=== PATIENT | male | born 1965 | race Caucasian/White ===

== ENCOUNTER 2023-03-16 21:24 | Inpatient (IN) | payer OTHER ==
[~2023-03-16] VITALS: Ht 180.3 cm; Wt 85.0 kg
[2023-03-16] MEDS ORDERED: VANCOMYCIN 1GM/250ML 250 ML IV ONE (23:00)
[2023-03-16] MEDS ORDERED: LACTATED RINGER'S 2,550 ML IV ONE (23:00)
[2023-03-16] MEDS ORDERED: cefTRIAXone SOD 1,000 MG VL IM ONE (23:00)
[2023-03-16] MEDS ORDERED: PIPERACILLIN-TAZOB 3.375GM 100 ML IV ONE (23:15)
[2023-03-16 23:36] LABS: Basophils # (auto) 0 10 ^3/uL (0-0.2); Basophils % (auto) 0.3 % (0.0-2.0); Eosinophils # (auto) 0 10 ^3/uL (0-0.8); Eosinophils % (auto) 0.1 % (0.0-7.0); Hematocrit 35.8 % (41.0-53.0); Hemoglobin 12.4 g/dL (13.5-17.5); Lymphocytes # (auto) 0.8 10 ^3/uL (0.4-5.4); Lymphocytes % (auto) 5.5 % (10.0-50.0); Mean Corpuscular Hemoglobin 32.4 pg (28.0-32.0); Mean Corpuscular Hgb Conc. 34.7 g/dL (32.0-36.0); Mean Corpuscular Volume 93.2 fL (80.0-100.0); Monocytes # (auto) 0.8 10 ^3/uL (0-1.3); Monocytes % (auto) 5.3 % (0.0-12.0); Neutrophils # (auto) 13.4 10 ^3/uL (1.6-8.6); Neutrophils % (auto) 88.8 % (37.0-80.0); Red Blood Cells 3.84 10^6/uL (4.5-5.90)
[2023-03-16 23:53] LABS: Albumin 3.1 g/dL (3.4-5.0); BUN/Creatinine Ratio 17.9 (10.0-20.0); Calcium 8.4 mg/dL (8.5-10.1); INR 1.25 (0.9-1.15); Partial Thromboplastin Time 28.5 sec (24.6-33.4)
[2023-03-16 23:56] LABS: Bilirubin, Total 0.5 mg/dL (0.2-1.0)
[2023-03-17] MEDS ORDERED: ONDANSETRON HCL 4 MG/2 ML VIAL IV ONE (00:30)
[2023-03-17] MEDS ORDERED: diphenhdrAMINE HCL 50 MG/1 ML VL IV ONE (00:30)
[2023-03-17] MEDS ORDERED: DexAMETHasone SOD PHOS 10MG/1ML VIAL INJ IV ONE (00:30)
[2023-03-17] MEDS ORDERED: HYDROmorphone HCL 2 MG/ML VL/or syr IV ONE ×2 (00:30→06:00)
[2023-03-17] MEDS ORDERED: OMEPRAZOLE-SOD BICARB 20 MG POWDER PO ONE (01:50)
[2023-03-17] MEDS ORDERED: PANTOPRAZOLE 40 MG TAB PO ONE (03:00)
[2023-03-17] MEDS: HYDROcodone-ACET 10/325MG TAB PO PRN ×4 (07:04→22:58)
[2023-03-17] MEDS: ENOXAPARIN SOD 40 MG/0.4 ML SYRINGE SC SCH (09:14)
[2023-03-17] MEDS: PANTOPRAZOLE 40 MG TAB PO SCH (09:14)
[2023-03-17 10:23] VITALS: BP 108/58
[2023-03-17 10:30] VITALS: BP 98/58
[2023-03-17] MEDS ORDERED: VANCOMYCIN PER PHARMACY 0 MG IV SCH (13:00)
[2023-03-17 13:41] VITALS: BP 94/54
[2023-03-17] MEDS: VANCOMYCIN 1GM/250ML 250 ML IV SCH (14:06)
[2023-03-17 17:00] VITALS: BP 103/43
[2023-03-17] MEDS: PIPERACILLIN-TAZOB 3.375GM 100 ML IV SCH (18:28)
[2023-03-17 22:00] VITALS: BP 118/52
[2023-03-18] MEDS: VANCOMYCIN 1GM/250ML 250 ML IV SCH ×2 (01:51→15:04)
[2023-03-18 05:00] VITALS: BP 103/68
[2023-03-18 09:00] VITALS: BP 101/47
[2023-03-18] MEDS: PANTOPRAZOLE 40 MG TAB PO SCH (09:19)
[2023-03-18] MEDS: PIPERACILLIN-TAZOB 3.375GM 100 ML IV SCH ×2 (09:19→18:19)
[2023-03-18] MEDS: ENOXAPARIN SOD 40 MG/0.4 ML SYRINGE SC SCH (09:19)
[2023-03-18] MEDS: HYDROcodone-ACET 10/325MG TAB PO PRN ×3 (09:24→23:33)
[2023-03-18 12:48] VITALS: BP 101/50
[2023-03-18] MEDS: DAKINS QUARTER STR 0.125% (NaHypochlorite) 473 ML TOPICAL SOL TOP SCH (15:04)
[2023-03-18 16:47] VITALS: BP 95/50
[2023-03-18 22:00] VITALS: BP 115/62
[2023-03-19] MEDS: VANCOMYCIN 1GM/250ML 250 ML IV SCH ×2 (01:53→14:33)
[2023-03-19] MEDS: PIPERACILLIN-TAZOB 3.375GM 100 ML IV SCH ×3 (03:36→18:00)
[2023-03-19 05:00] VITALS: BP 93/49
[2023-03-19 09:00] VITALS: BP 98/60
[2023-03-19] MEDS: PANTOPRAZOLE 40 MG TAB PO SCH (10:00)
[2023-03-19] MEDS: ENOXAPARIN SOD 40 MG/0.4 ML SYRINGE SC SCH (10:00)
[2023-03-19] MEDS: HYDROcodone-ACET 10/325MG TAB PO PRN ×2 (10:06→14:42)
[2023-03-19 12:56] VITALS: BP 98/49
[2023-03-19] MEDS: DAKINS QUARTER STR 0.125% (NaHypochlorite) 473 ML TOPICAL SOL TOP SCH (14:42)
[2023-03-19] MEDS ORDERED: LEVO500T91 PO (15:39)
[2023-03-19 16:28] VITALS: BP 103/70
[2023-03-19 16:56] VITALS: BP 103/70
== END 2023-03-19 18:25 | DRG 602 ==
LOC: EDBD 21:24 → ER 21:24 → EEVIPCON 21:24 → OVERFLOW 03-17 06:38 → CENTRAL 03-17 10:05
PROVIDERS: ADMIT Internal Medicine; ATTEND Internal Medicine
DX: L03.116 Cellulitis of left lower limb (principal); J18.9 Pneumonia, unspecified organism; L03.115 Cellulitis of right lower limb; I73.9 Peripheral vascular disease, unspecified; I10 Essential (primary) hypertension; I48.91 Unspecified atrial fibrillation; Z88.2 Allergy status to sulfonamides; Z90.49 Acquired absence of other specified parts of digestive tract; I87.2 Venous insufficiency (chronic) (peripheral)
CPT/HCPCS: 36415; 71045; 73718; 80053; 80202; 82565; 83605; 83690; 85025; 85610; 85730; 87040; 87077; 87186; 87205; 93970; 96365; 96366; 96368; 96375; G0378; J1100; J2405; J2543

== ENCOUNTER 2023-08-10 10:51 | Inpatient (IN) | payer OTHER ==
[~2023-08-10] VITALS: Ht 185.4 cm; Wt 89.0 kg
[~2023-08-10 10:51] MED LIST: LEVO500T91 PO
[2023-08-10] MEDS ORDERED: KETOROLAC TROMETH 30 MG/ML 1ML VIAL IV ONE (11:00)
[2023-08-10 11:21] LABS: Basophils # (auto) 0 10 ^3/uL (0-0.2); Basophils % (auto) 0.5 % (0.0-2.0); Eosinophils # (auto) 0.8 10 ^3/uL (0-0.8); Eosinophils % (auto) 9.6 % (0.0-7.0); Hematocrit 41.9 % (41.0-53.0); Hemoglobin 14.2 g/dL (13.5-17.5); Lymphocytes # (auto) 1.7 10 ^3/uL (0.4-5.4); Lymphocytes % (auto) 19.5 % (10.0-50.0); Mean Corpuscular Hemoglobin 31.4 pg (28.0-32.0); Mean Corpuscular Hgb Conc. 33.8 g/dL (32.0-36.0); Mean Corpuscular Volume 93.1 fL (80.0-100.0); Monocytes # (auto) 0.7 10 ^3/uL (0-1.3); Monocytes % (auto) 8.5 % (0.0-12.0); Neutrophils # (auto) 5.4 10 ^3/uL (1.6-8.6); Neutrophils % (auto) 61.9 % (37.0-80.0); Nucleated Red Blood Cells % 0.2 %; Red Cell Distribution Width 14.9 % (11.8-14.3); White Blood Cell 8.7 10^3/uL (4.4-10.8)
[2023-08-10 11:51] LABS: Alanine Aminotransferase 39 U/L (7-40); Albumin 4.4 g/dL (3.2-4.8); Alkaline Phosphatase 122 U/L (46-116); Anion Gap 6 (5-15); Aspartate Aminotransferase 37 U/L (13-40); BUN/Creatinine Ratio 17.6 (10.0-20.0); Bilirubin, Total 0.6 mg/dL (0.2-1.0); Blood Urea Nitrogen 22 mg/dL (9-23); Calcium 9.4 mg/dL (8.7-10.4); Carbon Dioxide 26 mmol/L (20-30); Chloride 104 mmol/L (98-107); Glucose 91 mg/dL (74-106); Lactic Acid w/Reflex 2.8 mmol/L (0.4-2.0); Potassium 4.4 mmol/L (3.5-5.1); Sodium 136 mmol/L (136-145); Total Protein 7.9 g/dL (5.7-8.2)
[2023-08-10 12:33] LABS: Erythrocyte Sedimentation Rate 19 mm/hr (0-20)
[2023-08-10] MEDS ORDERED: KETOROLAC TROMETH 60MG/2ML VIAL ONE (13:43)
[2023-08-10] MEDS ORDERED: VANCOMYCIN PER PHARMACY 0 MG IV SCH (15:30)
[2023-08-10] MEDS ORDERED: VANCOMYCIN 1GM/250ML 250 ML IV ONE (16:00)
[2023-08-10 20:20] VITALS: O2SAT 98
[2023-08-10] MEDS ORDERED: methylPREDNISolone SOD SUCC 125 MG/2 ML VL IV ONE (22:30)
[2023-08-10] MEDS ORDERED: PIPERACILLIN-TAZOB 3.375GM 100 ML IV ONE (22:30)
[2023-08-10] MEDS ORDERED: diphenhdrAMINE HCL 50 MG/1 ML VL IV ONE (22:30)
[2023-08-10] MEDS: IBUPROFEN 800 MG TAB PO PRN (22:31)
[2023-08-11 05:00] VITALS: BP 114/58; PULSE 74; RESP 17; TEMP 97.7; O2SAT 94
[2023-08-11 05:30] VITALS: PULSE 74; RESP 17; O2SAT 94
[2023-08-11 09:00] VITALS: BP 109/49; PULSE 62; RESP 14; TEMP 98; O2SAT 100
[2023-08-11] MEDS ORDERED: VANCOMYCIN 1GM/250ML 250 ML IV SCH (09:00)
[2023-08-11] MEDS: DULoxetine HCL 30 MG CAP PO SCH (10:00)
[2023-08-11] MEDS: PANTOPRAZOLE 40 MG TAB PO SCH (10:09)
[2023-08-11] MEDS: IBUPROFEN 800 MG TAB PO PRN (10:10)
[2023-08-11] MEDS: ENOXAPARIN SOD 40 MG/0.4 ML SYRINGE SC SCH (10:11)
[2023-08-11 12:53] VITALS: BP 125/73; PULSE 87; RESP 16; TEMP 98.4; O2SAT 97
[2023-08-11] MEDS: PIPERACILLIN-TAZOB 3.375GM 100 ML IV SCH ×2 (13:39→22:38)
[2023-08-11 17:00] VITALS: BP 110/58; PULSE 83; RESP 16; TEMP 97.8; O2SAT 99
[2023-08-11 22:00] VITALS: BP 125/68; PULSE 85; RESP 14; TEMP 98.4; O2SAT 94
[2023-08-11] MEDS: traMADol HCL 50 MG TAB PO PRN (23:03)
[2023-08-11] MEDS: DAKINS QUARTER STR 0.125% (NaHypochlorite) 473 ML TOPICAL SOL TOP SCH (23:09)
[2023-08-12 05:00] VITALS: BP 119/66; PULSE 75; RESP 16; TEMP 98.2; O2SAT 94
[2023-08-12] MEDS: PIPERACILLIN-TAZOB 3.375GM 100 ML IV SCH ×3 (06:26→21:57)
[2023-08-12] MEDS: traMADol HCL 50 MG TAB PO PRN ×3 (08:32→23:19)
[2023-08-12] MEDS: DULoxetine HCL 30 MG CAP PO SCH (08:32)
[2023-08-12] MEDS: PANTOPRAZOLE 40 MG TAB PO SCH (08:32)
[2023-08-12] MEDS: ENOXAPARIN SOD 40 MG/0.4 ML SYRINGE SC SCH (08:32)
[2023-08-12 08:53] VITALS: BP 122/67; PULSE 62; RESP 12; TEMP 97.9; O2SAT 93
[2023-08-12] MEDS: DAKINS QUARTER STR 0.125% (NaHypochlorite) 473 ML TOPICAL SOL TOP SCH ×2 (10:22→21:57)
[2023-08-12 13:01] VITALS: BP 93/50; PULSE 65; RESP 20; TEMP 98.2; O2SAT 92
[2023-08-12 16:48] VITALS: BP 114/57; PULSE 63; RESP 16; TEMP 97.7; O2SAT 94
[2023-08-12 20:00] VITALS: RESP 16
[2023-08-12 21:52] VITALS: BP 107/65; PULSE 60; RESP 14; TEMP 98.2; O2SAT 95
[2023-08-13 05:00] VITALS: BP 95/58; PULSE 64; RESP 14; TEMP 97.9; O2SAT 91
[2023-08-13] MEDS: PIPERACILLIN-TAZOB 3.375GM 100 ML IV SCH (05:45)
[2023-08-13 08:00] VITALS: BP 132/81; PULSE 51; RESP 18; TEMP 97.7
[2023-08-13] MEDS: DULoxetine HCL 30 MG CAP PO SCH ×2 (08:10→13:33)
[2023-08-13 09:11] VITALS: BP 132/81; PULSE 54; RESP 20; TEMP 97.8; O2SAT 94
[2023-08-13] MEDS: PANTOPRAZOLE 40 MG TAB PO SCH (09:36)
[2023-08-13] MEDS: ENOXAPARIN SOD 40 MG/0.4 ML SYRINGE SC SCH (09:37)
[2023-08-13] MEDS: DAKINS QUARTER STR 0.125% (NaHypochlorite) 473 ML TOPICAL SOL TOP SCH ×2 (10:00→22:30)
[2023-08-13] MEDS: IBUPROFEN 800 MG TAB PO PRN ×2 (11:31→18:37)
[2023-08-13 13:00] VITALS: BP 124/72; PULSE 67; RESP 18; TEMP 98.2; O2SAT 94
[2023-08-13] MEDS: traMADol HCL 50 MG TAB PO PRN ×2 (13:33→22:48)
[2023-08-13 17:00] VITALS: BP 142/83; PULSE 60; RESP 20; TEMP 98.3; O2SAT 95
[2023-08-13 22:00] VITALS: BP 121/79; PULSE 66; RESP 18; TEMP 98; O2SAT 95
[2023-08-13] MEDS: LINEZOLID 600MG/300ML 300 ML IV SCH (22:31)
[2023-08-14] VITALS (8 sets, daily range): BP systolic 96–122; BP diastolic 49–76; PULSE 59–68; RESP 16–19; TEMP 97.8–98.4; O2SAT 93–95
[2023-08-14] MEDS: DULoxetine HCL 30 MG CAP PO SCH (09:20)
[2023-08-14] MEDS: ENOXAPARIN SOD 40 MG/0.4 ML SYRINGE SC SCH (09:20)
[2023-08-14] MEDS: PANTOPRAZOLE 40 MG TAB PO SCH (09:21)
[2023-08-14] MEDS: LINEZOLID 600MG/300ML 300 ML IV SCH ×2 (09:21→22:09)
[2023-08-14] MEDS: DAKINS QUARTER STR 0.125% (NaHypochlorite) 473 ML TOPICAL SOL TOP SCH ×2 (09:22→22:09)
[2023-08-14] MEDS: traMADol HCL 50 MG TAB PO PRN (15:04)
[2023-08-15] VITALS (7 sets, daily range): BP systolic 87–122; BP diastolic 47–74; PULSE 66–83; RESP 17–22; TEMP 98.1–98.6; O2SAT 91–98
[2023-08-15 05:25] LABS: Basophils # (auto) 0.1 10 ^3/uL (0-0.2); Eosinophils % (auto) 14.8 % (0.0-7.0); Hematocrit 40.4 % (41.0-53.0); Hemoglobin 13.7 g/dL (13.5-17.5); Lymphocytes % (auto) 15.6 % (10.0-50.0); Mean Corpuscular Hemoglobin 31.4 pg (28.0-32.0); Mean Corpuscular Volume 92.5 fL (80.0-100.0); Monocytes # (auto) 0.5 10 ^3/uL (0-1.3); Monocytes % (auto) 7.4 % (0.0-12.0); Neutrophils # (auto) 4.1 10 ^3/uL (1.6-8.6); Neutrophils % (auto) 61.2 % (37.0-80.0); Nucleated Red Blood Cells % 0.1 %; Red Blood Cells 4.36 10^6/uL (4.5-5.90); Red Cell Distribution Width 14.8 % (11.8-14.3); White Blood Cell 6.7 10^3/uL (4.4-10.8)
[2023-08-15 05:33] LABS: Chloride 106 mmol/L (98-107); Sodium 138 mmol/L (136-145)
[2023-08-15 05:34] LABS: Anion Gap 6 (5-15); Calcium 8.8 mg/dL (8.7-10.4); Carbon Dioxide 26 mmol/L (20-30)
[2023-08-15 05:39] LABS: BUN/Creatinine Ratio 14.4 (10.0-20.0); Blood Urea Nitrogen 17 mg/dL (9-23); Glucose 95 mg/dL (74-106)
[2023-08-15] MEDS: IBUPROFEN 800 MG TAB PO PRN (06:16)
[2023-08-15] MEDS: LINEZOLID 600MG/300ML 300 ML IV SCH ×2 (09:44→22:44)
[2023-08-15] MEDS: PANTOPRAZOLE 40 MG TAB PO SCH (09:44)
[2023-08-15] MEDS: DULoxetine HCL 30 MG CAP PO SCH (09:44)
[2023-08-15] MEDS: DAKINS QUARTER STR 0.125% (NaHypochlorite) 473 ML TOPICAL SOL TOP SCH ×2 (09:44→22:00)
[2023-08-15] MEDS: ENOXAPARIN SOD 40 MG/0.4 ML SYRINGE SC SCH (09:44)
[2023-08-15] MEDS: traMADol HCL 50 MG TAB PO PRN ×2 (09:58→17:51)
[2023-08-16] VITALS (7 sets, daily range): BP systolic 98–137; BP diastolic 59–73; PULSE 61–92; RESP 17–48; TEMP 97.6–98; O2SAT 92–97
[2023-08-16] MEDS: traMADol HCL 50 MG TAB PO PRN (05:52)
[2023-08-16] MEDS: PANTOPRAZOLE 40 MG TAB PO SCH (10:12)
[2023-08-16] MEDS: ENOXAPARIN SOD 40 MG/0.4 ML SYRINGE SC SCH (10:13)
[2023-08-16] MEDS: DULoxetine HCL 30 MG CAP PO SCH (10:13)
[2023-08-16] MEDS: cefTRIAXone 1GM/50ML D5W 50 ML IV SCH (10:48)
[2023-08-16] MEDS: LINEZOLID 600MG/300ML 300 ML IV SCH ×2 (12:26→22:41)
[2023-08-16] MEDS ORDERED: ACYCLOVIR 400 MG TAB PO SCH (14:00)
[2023-08-16] MEDS: HYDROcodone-ACET 10/325MG TAB PO PRN ×2 (16:56→22:40)
[2023-08-16] MEDS: DAKINS QUARTER STR 0.125% (NaHypochlorite) 473 ML TOPICAL SOL TOP SCH ×2 (16:58→22:00)
[2023-08-16] MEDS: ACYCLOVIR 400 MG TAB PO SCH (22:40)
[2023-08-17] VITALS (7 sets, daily range): BP systolic 102–131; BP diastolic 57–79; PULSE 55–81; RESP 18–20; TEMP 97.4–98.3; O2SAT 94–99
[2023-08-17] MEDS: ACYCLOVIR 400 MG TAB PO SCH ×5 (05:35→21:52)
[2023-08-17] MEDS: cefTRIAXone 1GM/50ML D5W 50 ML IV SCH (08:50)
[2023-08-17] MEDS: PANTOPRAZOLE 40 MG TAB PO SCH (11:30)
[2023-08-17] MEDS: LINEZOLID 600MG/300ML 300 ML IV SCH ×2 (11:30→21:51)
[2023-08-17] MEDS: DULoxetine HCL 30 MG CAP PO SCH (11:30)
[2023-08-17] MEDS: ENOXAPARIN SOD 40 MG/0.4 ML SYRINGE SC SCH (11:30)
[2023-08-17] MEDS: DAKINS QUARTER STR 0.125% (NaHypochlorite) 473 ML TOPICAL SOL TOP SCH ×2 (11:31→21:58)
[2023-08-17] MEDS: HYDROcodone-ACET 10/325MG TAB PO PRN ×2 (17:12→21:52)
[2023-08-18] VITALS (7 sets, daily range): BP systolic 115–139; BP diastolic 40–65; PULSE 65–75; RESP 17–20; TEMP 97.6–98.9; O2SAT 94–97
[2023-08-18] MEDS: ACYCLOVIR 400 MG TAB PO SCH ×5 (05:57→21:26)
[2023-08-18] MEDS: cefTRIAXone 1GM/50ML D5W 50 ML IV SCH (08:57)
[2023-08-18] MEDS: LINEZOLID 600MG/300ML 300 ML IV SCH ×2 (10:38→21:25)
[2023-08-18] MEDS: DULoxetine HCL 30 MG CAP PO SCH (10:39)
[2023-08-18] MEDS: PANTOPRAZOLE 40 MG TAB PO SCH (10:40)
[2023-08-18] MEDS: ENOXAPARIN SOD 40 MG/0.4 ML SYRINGE SC SCH (10:40)
[2023-08-18] MEDS: DAKINS QUARTER STR 0.125% (NaHypochlorite) 473 ML TOPICAL SOL TOP SCH ×2 (10:42→21:25)
[2023-08-18] MEDS: HYDROcodone-ACET 10/325MG TAB PO PRN ×2 (10:43→21:27)
[2023-08-19] VITALS (7 sets, daily range): BP systolic 110–131; BP diastolic 54–77; PULSE 60–74; RESP 17–20; TEMP 97.8–97.9; O2SAT 94–100
[2023-08-19] MEDS: HYDROcodone-ACET 10/325MG TAB PO PRN ×2 (04:34→09:41)
[2023-08-19] MEDS: ACYCLOVIR 400 MG TAB PO SCH ×5 (05:32→21:28)
[2023-08-19] MEDS: cefTRIAXone 1GM/50ML D5W 50 ML IV SCH (08:30)
[2023-08-19] MEDS: LINEZOLID 600MG/300ML 300 ML IV SCH ×2 (09:40→21:27)
[2023-08-19] MEDS: ENOXAPARIN SOD 40 MG/0.4 ML SYRINGE SC SCH (09:41)
[2023-08-19] MEDS: DULoxetine HCL 30 MG CAP PO SCH (09:41)
[2023-08-19] MEDS: PANTOPRAZOLE 40 MG TAB PO SCH (09:42)
[2023-08-19] MEDS: DAKINS QUARTER STR 0.125% (NaHypochlorite) 473 ML TOPICAL SOL TOP SCH ×2 (09:43→21:30)
[2023-08-19] MEDS: OXYCODONE W/ ACETAMINOPHEN 5/325MG TABLET PO PRN ×2 (13:27→21:29)
[2023-08-20] VITALS (7 sets, daily range): BP systolic 103–124; BP diastolic 60–65; PULSE 60–71; RESP 18–20; TEMP 97.5–99; O2SAT 93–95
[2023-08-20] MEDS: ACYCLOVIR 400 MG TAB PO SCH ×5 (06:35→21:19)
[2023-08-20] MEDS: ENOXAPARIN SOD 40 MG/0.4 ML SYRINGE SC SCH (10:37)
[2023-08-20] MEDS: cefTRIAXone 1GM/50ML D5W 50 ML IV SCH (10:37)
[2023-08-20] MEDS: PANTOPRAZOLE 40 MG TAB PO SCH (10:37)
[2023-08-20] MEDS: LINEZOLID 600MG/300ML 300 ML IV SCH ×2 (10:37→21:13)
[2023-08-20] MEDS: DULoxetine HCL 30 MG CAP PO SCH (10:37)
[2023-08-20] MEDS: OXYCODONE W/ ACETAMINOPHEN 5/325MG TABLET PO PRN (15:23)
[2023-08-20] MEDS: DAKINS QUARTER STR 0.125% (NaHypochlorite) 473 ML TOPICAL SOL TOP SCH ×2 (18:54→21:19)
[2023-08-20] MEDS: IBUPROFEN 800 MG TAB PO PRN (21:14)
[2023-08-21] MEDS: OXYCODONE W/ ACETAMINOPHEN 5/325MG TABLET PO PRN ×2 (04:55→23:13)
[2023-08-21] MEDS: ACYCLOVIR 400 MG TAB PO SCH ×5 (04:56→22:05)
[2023-08-21 05:00] VITALS: BP 113/52; PULSE 62; RESP 18; TEMP 97.7; O2SAT 95
[2023-08-21] MEDS: cefTRIAXone 1GM/50ML D5W 50 ML IV SCH (08:29)
[2023-08-21 08:30] VITALS: BP 111/70; PULSE 60; RESP 16; TEMP 97.6; O2SAT 96
[2023-08-21 09:00] VITALS: BP 111/70; PULSE 60; RESP 16; TEMP 97.6; O2SAT 96
[2023-08-21] MEDS: DULoxetine HCL 30 MG CAP PO SCH (10:25)
[2023-08-21] MEDS: ENOXAPARIN SOD 40 MG/0.4 ML SYRINGE SC SCH (10:25)
[2023-08-21] MEDS: PANTOPRAZOLE 40 MG TAB PO SCH (10:25)
[2023-08-21] MEDS: LINEZOLID 600MG/300ML 300 ML IV SCH ×2 (10:25→22:05)
[2023-08-21 13:00] VITALS: BP 115/58; PULSE 69; RESP 18; TEMP 98.1; O2SAT 93
[2023-08-21 16:37] VITALS: BP 105/57; PULSE 69; RESP 20; TEMP 98.4; O2SAT 94
[2023-08-21] MEDS: DAKINS QUARTER STR 0.125% (NaHypochlorite) 473 ML TOPICAL SOL TOP SCH ×2 (17:10→22:23)
[2023-08-21 20:00] VITALS: BP 117/64; PULSE 83; RESP 18; TEMP 98.1; O2SAT 94
[2023-08-22] VITALS (7 sets, daily range): BP systolic 102–136; BP diastolic 58–69; PULSE 55–71; RESP 18–20; TEMP 97.4–98.1; O2SAT 93–99
[2023-08-22] MEDS: OXYCODONE W/ ACETAMINOPHEN 5/325MG TABLET PO PRN ×4 (03:54→23:50)
[2023-08-22] MEDS: ACYCLOVIR 400 MG TAB PO SCH ×5 (05:55→21:58)
[2023-08-22] MEDS: cefTRIAXone 1GM/50ML D5W 50 ML IV SCH (08:16)
[2023-08-22] MEDS: LINEZOLID 600MG/300ML 300 ML IV SCH ×2 (10:28→21:57)
[2023-08-22] MEDS: DULoxetine HCL 30 MG CAP PO SCH (10:29)
[2023-08-22] MEDS: PANTOPRAZOLE 40 MG TAB PO SCH (10:29)
[2023-08-22] MEDS: ENOXAPARIN SOD 40 MG/0.4 ML SYRINGE SC SCH (10:42)
[2023-08-22] MEDS: DAKINS QUARTER STR 0.125% (NaHypochlorite) 473 ML TOPICAL SOL TOP SCH ×2 (18:42→21:58)
[2023-08-23] VITALS (7 sets, daily range): BP systolic 99–131; BP diastolic 46–72; PULSE 58–77; RESP 18–20; TEMP 97.5–98; O2SAT 94–99
[2023-08-23 05:57] LABS: Alanine Aminotransferase 74 U/L (7-40); Albumin 4.3 g/dL (3.2-4.8); Alkaline Phosphatase 102 U/L (46-116); Anion Gap 6 (5-15); Aspartate Aminotransferase 49 U/L (13-40); BUN/Creatinine Ratio 12.8 (10.0-20.0); Blood Urea Nitrogen 15 mg/dL (9-23); Calcium 9.5 mg/dL (8.7-10.4); Carbon Dioxide 27 mmol/L (20-30); Chloride 105 mmol/L (98-107); Glucose 86 mg/dL (74-106); Potassium 4.4 mmol/L (3.5-5.1); Sodium 138 mmol/L (136-145)
[2023-08-23 05:58] LABS: Bilirubin, Total 0.5 mg/dL (0.2-1.0); Total Protein 7.5 g/dL (5.7-8.2)
[2023-08-23] MEDS: ACYCLOVIR 400 MG TAB PO SCH ×5 (06:32→21:54)
[2023-08-23] MEDS: OXYCODONE W/ ACETAMINOPHEN 5/325MG TABLET PO PRN (06:33)
[2023-08-23] MEDS: cefTRIAXone 1GM/50ML D5W 50 ML IV SCH (09:09)
[2023-08-23] MEDS: PANTOPRAZOLE 40 MG TAB PO SCH (09:09)
[2023-08-23] MEDS: DULoxetine HCL 30 MG CAP PO SCH (09:09)
[2023-08-23] MEDS: ENOXAPARIN SOD 40 MG/0.4 ML SYRINGE SC SCH (09:10)
[2023-08-23] MEDS: LINEZOLID 600MG/300ML 300 ML IV SCH ×2 (10:10→21:54)
[2023-08-23] MEDS ORDERED: DONNATAL 5ml ORAL Elix (BELLADONNA ALK-PHENOBARB) PO PRN (11:45)
[2023-08-23] MEDS: metroNIDAZOLE 500 MG TAB PO SCH ×2 (13:22→21:54)
[2023-08-23] MEDS: HYDROcodone-ACET 10/325MG TAB PO PRN (20:13)
[2023-08-23] MEDS: DAKINS QUARTER STR 0.125% (NaHypochlorite) 473 ML TOPICAL SOL TOP SCH ×2 (21:54→22:00)
[2023-08-24 04:55] VITALS: BP 102/83; PULSE 78; RESP 18; TEMP 97.7; O2SAT 94
[2023-08-24] MEDS: metroNIDAZOLE 500 MG TAB PO SCH ×2 (06:31→14:40)
[2023-08-24] MEDS: ACYCLOVIR 400 MG TAB PO SCH ×3 (06:31→14:40)
[2023-08-24 08:00] VITALS: O2SAT 96
[2023-08-24 09:00] VITALS: BP 99/58; PULSE 71; RESP 17; TEMP 98.4; O2SAT 93
[2023-08-24] MEDS: PANTOPRAZOLE 40 MG TAB PO SCH (09:53)
[2023-08-24] MEDS: LINEZOLID 600MG/300ML 300 ML IV SCH (09:53)
[2023-08-24] MEDS: cefTRIAXone 1GM/50ML D5W 50 ML IV SCH (09:53)
[2023-08-24] MEDS: DULoxetine HCL 30 MG CAP PO SCH (09:53)
[2023-08-24] MEDS: ENOXAPARIN SOD 40 MG/0.4 ML SYRINGE SC SCH (09:54)
[2023-08-24 13:00] VITALS: BP 117/69; PULSE 71; RESP 20; TEMP 97.9; O2SAT 95
[2023-08-24] MEDS: HYDROcodone-ACET 10/325MG TAB PO PRN (14:40)
[2023-08-24] MEDS ORDERED: CIPR500T4 PO (15:20)
[2023-08-24] MEDS: DAKINS QUARTER STR 0.125% (NaHypochlorite) 473 ML TOPICAL SOL TOP SCH (16:27)
[2023-08-24 16:48] VITALS: TEMP 36.6
[2023-08-24 17:00] VITALS: BP 132/72; PULSE 76; RESP 17; TEMP 98.2; O2SAT 96
== END 2023-08-24 19:50 | DRG 593 ==
LOC: ER 10:51 → EEVIPCON 10:51 → OVERFLOW 15:32 → MERGE 15:32 → WEST WING 23:54 → EAST 08-13 23:43
PROVIDERS: ADMIT Internal Medicine; ATTEND Internal Medicine
DX: L97.319 Non-pressure chronic ulcer of right ankle with unspecified severity (principal); L03.115 Cellulitis of right lower limb; L03.116 Cellulitis of left lower limb; L97.329 Non-pressure chronic ulcer of left ankle with unspecified severity; I87.8 Other specified disorders of veins; G89.4 Chronic pain syndrome; B00.9 Herpesviral infection, unspecified; F17.210 Nicotine dependence, cigarettes, uncomplicated; L29.9 Pruritus, unspecified; R19.7 Diarrhea, unspecified; Z80.0 Family history of malignant neoplasm of digestive organs; Z88.2 Allergy status to sulfonamides; Z90.49 Acquired absence of other specified parts of digestive tract; B95.62 Methicillin resistant Staphylococcus aureus infection as the cause of diseases classified elsewhere
CPT/HCPCS: 36415; 80048; 80053; 83605; 85025; 85049; 85652; 87040; 87077; 87186; 87205; 87493; 93970; 96365; 96375; G0378; J0696; J1885; J2543